=== PATIENT | male | born 1975 | race Hispanic/Latino ===

== ENCOUNTER 2025-04-26 09:45 | Emergency (ER) | payer SELFPAY ==
[2025-04-26] MEDS ORDERED: Acetaminophen 500 MG TAB ONE (10:17)
[2025-04-26] MEDS ORDERED: Boostrix 0.5 ML (Tdap) VIAL (>/=7 yrs of age) ONE (10:18)
[2025-04-26] MEDS ORDERED: CEFAZOLIN 2 GM VIAL ONE (10:18)
[2025-04-26] MEDS ORDERED: Lidocaine 1% (PF) 30 ML VIAL ONE (11:43)
[2025-04-26] MEDS ORDERED: Ketorolac Tromethamine 30 MG (1 mL) VIAL ONE (13:21)
== END 2025-04-26 13:56 | disposition home or self-care (01) ==
LOC: ERS 09:45
DX: S62.632B Displaced fracture of distal phalanx of right middle finger, initial encounter for open fracture (principal); S62.634B Displaced fracture of distal phalanx of right ring finger, initial encounter for open fracture; F17.210 Nicotine dependence, cigarettes, uncomplicated; W22.8XXA Striking against or struck by other objects, initial encounter; Z23 Encounter for immunization
CPT/HCPCS: 12031; 83036; 90471; 90715; 96365; 96375; J1885; J3010